=== PATIENT | female | born 1985 | race Caucasian/White ===

== ENCOUNTER 2025-04-09 17:14 | Emergency (ER) | payer OTHER, SELFPAY ==
[2025-04-09] VITALS (8 sets, daily range): BP systolic 103–167; BP diastolic 55–118
--- NOTE | 2025-04-09 18:10 | ED.GENMED ---
History of Present Illness
General
Chief Complaint: Alcohol Problem
Source: patient
Exam Limitations: none
Time Seen by Provider: 04/09/25 18:02
History of Present Illness
History of Present Illness:
See MDM
Past History
Past History
ED Past Medical History: None
ED Past Surgical History: None
Social History
Tobacco: Non-smoker
Alcohol: Daily
Drug: Former user
Phy Exam
Physical Exam
Physical Exam:
See MDM
Scores
Withdrawal Assessment of Alcohol
Withdrawal Assessment Completed?: Yes
Nausea and Vomiting: Mild nausea with no vomiting
Tactile Disturbances: Very mild itching, pins and needles, burning or numbness
Tremor: Moderate, with patient's arms extended
Auditory Disturbances: Not present
Paroxysmal Sweats: No sweat visible
Visual Disturbances: Not present
Anxiety: Mild anxiety
Headache, Fullness in Head: Not present
Agitation: Moderately fidgety and restless
Orientation and clouding of sensorium: Oriented and can do serial additions
Total CIWA Score: 11
Alcohol Withdrawal Medication Recommendation: Equal to MSAS Score 5-7. Lorazepam 1mg IV or PO NOW & re-assess q2hrs
Course
Orders/Labs/Results
Orders:
Orders
04/09/25 18:10
diazePAM [Valium Injection] 10 mg IV NOW STA
Test Result ONCE
04/09/25 18:19
Alcohol Urgent
Complete Blood Count/With Diff Urgent
Comprehensive Metabolic Panel Urgent
HCG, Serum Qualitative Screen Urgent
PTT Urgent
Prothrombin Time Urgent
04/09/25 19:16
Fentanyl, Urine Urgent
Urine Drug Abuse Screen Urgent
Date Specimen was Collected: 04/09/25
Time Specimen was Collected: 19:12
Abnormal Lab Results
04/09/25 04/09/25
18:19 19:16
RBC 4.03 L 10^6/uL
(4.20-5.40)
MCH 34.0 H pg
(27.0-31.0)
Monocytes % 10.1 H %
(1.7-9.3)
Chloride 110 H mmol/L
(98-107)
BUN 6 L mg/dl
(7-17)
Creatinine 0.4 L mg/dL
(0.6-1.0)
AST 665 H* U/L
(14-36)
ALT 353 H U/L
(0-35)
Urine Cocaine Screen Positive H
(Negative)
04/09/25 18:19
04/09/25 18:19
Vital Signs
Initial and Last Documented VS:
Initial Vital Signs
Temp Pulse Resp BP Pulse Ox
98.7 F 117 18 167/118 94
04/09/25 17:16 04/09/25 17:16 04/09/25 17:16 04/09/25 17:16 04/09/25 17:16
Last Documented Vital Signs
Temp Pulse Resp BP Pulse Ox
98.7 F 89 18 103/55 95
04/09/25 17:16 04/09/25 20:45 04/09/25 20:45 04/09/25 20:00 04/09/25 20:45
MDM/Problems Addressed
Differential Diagnosis Includes:
Note:
CHIEF COMPLAINT(S)
Alcohol withdrawal symptoms
HISTORY OF PRESENT ILLNESS
The patient is a 40-year-old female with a reported history of alcohol use disorder that has progressively worsened over the past few months. She has been drinking large quantities daily, approximately one large bottle (handle) every two days. The
patient stated, 'If I dont drink for six hours, its bad,' describing tremors and anxiety necessitating immediate alcohol consumption even during nocturnal awakenings. This pattern has persisted for weeks. She has sought recovery support through
group meetings but has not previously undergone inpatient rehabilitation for alcohol abuse, though she has for heroin use. 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 The last alcohol consumption was approximately 30 minutes prior to
presentation. She expressed concerns about withdrawal and a desire for inpatient detoxification, citing the responsibilities of having a young child and work. She indicated awareness of her conditions, having experienced no seizures thus far.
SOCIAL DETERMINANTS OF HEALTH
The patient reported managing caregiving responsibilities for her young child and expressed concerns regarding maintaining her employment while addressing her health. She also noted needing support to attend recovery groups.
PHYSICAL EXAM
- General: Appears anxious, reports feeling tremulous.
- Nursing notes reviewed and vital signs reviewed.
SUMMARY OF ENCOUNTER
The patient presented with symptoms consistent with alcohol withdrawal and is seeking inpatient detoxification. She acknowledged a history of heavy alcohol use and sought medical intervention to manage withdrawal symptoms safely.
EMERGENCY TREATMENTS ADMINISTERED
Intravenous (IV) access was established with plans to administer diazepam (Valium), given her current withdrawal state and history with benzodiazepines.
PLAN
- Initiate IV fluid hydration.
- Administer diazepam (Valium) cautiously to manage withdrawal symptoms.
- Facilitate referral to an inpatient detoxification program.
- Engage in supportive discussions regarding concerns about benzodiazepine use.
DIFFERENTIAL DIAGNOSIS
- Alcohol withdrawal syndrome
- Alcohol use disorder
- Benzodiazepine withdrawal syndrome (considered due to similar presenting symptoms)
- Delirium tremens
- Anxiety disorder
- Tremors due to alcohol withdrawal
- Seizure risk due to withdrawal
- Dehydration secondary to alcohol use
- Nutritional deficiencies
MEDICAL DECISION MAKING
- Number and Complexity of Problems Addressed: Chronic conditions affecting care include alcohol use disorder and consideration of inpatient detoxification. Differential diagnosis list as stated above.
DATA
- Category 1: Initiated lab work and prepared for eventual management with planned IV hydration and diazepam administration.
- Category 3: Discussed management plan with the patient regarding the necessity of using benzodiazepines like diazepam for safe detoxification.
RISK
- Prescription medication was prescribed: Diazepam.
- Consideration of Admission/Observation: Escalation of care including admission/observation was considered given the complexity and risk of the patients presenting complaint, exam findings, and/or their underlying comorbidities. However,
ultimately, I feel the patient is safe for outpatient management with close follow-up. Reasoning: Work-up reassuring, does not reveal any acute life/organ-threatening processes, patients symptoms well controlled upon reevaluation, reexamination is
reassuring, vitals are stable, patient agreeable with discharge, reliable for follow-up.
DIAGNOSIS
- Alcohol withdrawal, F10.239
- Alcohol dependence, F10.20
04/09/25 - 19:17
Consulted with alcohol counselor; no beds available currently under patients insurance. Contacted [facility] for referral�awaiting confirmation of bed availability.
04/09/25 - 22:11
[facility] called back and pt accepted by Dr. Tavares.
SUMMARY OF ENCOUNTER
The patient presented to the emergency department experiencing alcohol withdrawal symptoms and requested assistance with detoxification. She described a dependence on alcohol with frequent consumption to manage anxiety and tremors. Due to her
current state, she required management to safely detox, and intravenous fluids were administered with diazepam (Valium) to control withdrawal symptoms. Laboratory results showed elevated transaminitis, likely related to chronic alcohol use.
DISPOSITION
Transfer
ASSESSMENT
The patient is experiencing alcohol withdrawal symptoms, complicated by chronic alcohol dependence and elevated liver enzymes indicative of potential liver injury.
EMERGENCY TREATMENTS ADMINISTERED
Diazepam (Valium) was administered intravenously to manage withdrawal symptoms.
MANAGEMENT OF THE PATIENTS CARE WAS DISCUSSED WITH
The patient was accepted for transfer and detoxification treatment at [facility].
PLAN
The plan included continued intravenous fluid hydration, management of withdrawal symptoms with medications, and transfer to a detoxification facility for inpatient treatment.
MEDICATION RECONCILIATION
- Diazepam (Valium) administered intravenously for withdrawal symptom management.
MEDICAL DECISION MAKING
- Number and Complexity of Problems Addressed: Chronic conditions affecting care include alcohol use disorder and withdrawal management. Differential diagnosis includes alcohol withdrawal syndrome, alcohol use disorder, benzodiazepine withdrawal
syndrome, delirium tremens, anxiety disorder, tremors due to alcohol withdrawal, dehydration, seizure risk due to withdrawal, and nutritional deficiencies.
- Data:
- Category 1: Lab results reviewed indicating elevated transaminitis associated with alcohol use.
- Risk: Prescription medication was administered: Diazepam. Transfer to a detoxification facility was arranged due to the complexity and risk associated with the patients withdrawal symptoms. Social determinants of health influenced care, including
the patients caregiving responsibilities and employment concerns.
DIAGNOSIS
- Alcohol withdrawal syndrome, F10.239
- Alcohol dependence, F10.20
*Pulse Oximetry
SaO2: 94
Oxygen Mode of Delivery: Room air
Patient hypoxic: no
*Critical Care Note
Total Time (30-74mins, 75-104mins- exclusive of procedures): Not Applicable
ED Attending Note
-
Portions of this chart may have been created with voice recognition software.� Occasional wrong word or��sound alike� substitutions may have occurred due to the inherent limitations of voice recognition software.
Discharge Plan
Departure
Patient Disposition: Acute Care Hospital
Date of Disposition: 04/09/25
Time of Disposition: 22:12
Discharge Problem:
Alcohol withdrawal
Referrals:
NONE,* [Family Provider, Internal Medicine]
Hospital Transfer
Other hospital: [facility]
I certify that the patient requires transfer: Yes
Discussed case with accepting physician: Dr. Tavares
Reason for transfer: availability of service
Interventions
Interventions:
*Risk Screen - Suicide Last Done: 04/09/25 17:16
*General Assessment Last Done: 04/09/25 17:16
*Neglect/Abuse Screening Last Done: 04/09/25 17:16
*ED- Fall Risk Assessment Last Done: 04/09/25 19:49
*ED COVID-19 Vaccine History Last Done: 04/09/25 19:49
*ED Influenza Vaccine History Last Done: 04/09/25 19:49
ED- Neurological Assessment Last Done: 04/09/25 18:50
ED-Psychological Assessment Last Done: 04/09/25 18:50
Discharge Date and Time
Print Language: [id number]
[2025-04-09 18:25] LABS: Hematocrit 39.7 % (37.0-47.0); Hemoglobin 13.7 g/dL (12.0-16.0); Mean Corp Hgb Conc. 34.5 g/dL (33.0-37.0); Mean Corpuscular Volume 98.5 fL (81.0-99.0); Nucleated Red Blood Cells % 0 %; Platelet Count 140 10^3/uL (130-400); Red Cell Dist. Width 12.6 % (11.5-14.5)
[2025-04-09 18:36] LABS: INR 0.89; PT 12.4 Sec (11.4-14.6)
[2025-04-09 18:37] LABS: APTT 26.5 Sec (23.4-35.0)
[2025-04-09 18:43] LABS: HCG, Serum Qualitative Screen Negative
[2025-04-09 18:59] LABS: ALT (SGPT) 353 U/L (0-35); AST (SGOT) 665 U/L (14-36); Albumin 4.9 g/dl (3.5-5.0); Alkaline Phosphatase 118 U/L (38-126); Blood Urea Nitrogen 6 mg/dl (7-17); Calcium 9.1 mg/dl (8.4-10.2); Carbon Dioxide 22 mmol/L (22-30); Chloride 110 mmol/L (98-107); Glucose 99 mg/dl (70-99); Potassium 3.8 mmol/L (3.5-5.1); Sodium 142 mmol/L (135-145); Total Protein 7.8 g/dl (6.3-8.2); eGFR > 60.00
[2025-04-09] MEDS: VALIUM INJECTION 10 MG IV (19:09)
[2025-04-10] VITALS: BP 117/73
[2025-04-10 00:57] VITALS: BP 130/91
== END 2025-04-10 01:17 | disposition short-term general hospital (02) ==
LOC: EMR 17:14
PROVIDERS: EMERGENCY PHYSICIAN Student in an Organized Health Care Education/Training Program
DX: F10.239 Alcohol dependence with withdrawal, unspecified (principal); R74.01 Elevation of levels of liver transaminase levels
CPT/HCPCS: 99285; 96374; 80053; 80306; 80307; 82077; 84703; 85025; 85610; 85730